=== PATIENT | male | born 1975 | race Caucasian/White ===

== ENCOUNTER 2019-11-30 09:32 | Outpatient (CLI) | payer OTHER ==
--- NOTE | 2019-11-30 15:59 | CT ---
CT OF ABDOMEN: Date: 11-30-2019 Comparison: None History: Epigastric pain and chest pain for months. Technique: Axial CT imaging at 5 mm intervals from lung bases through mid sacrum with IV and oral con trast. Coronal and sagittal reformatted imaging obtained. FINDINGS: The pelvis was not imaged on this exam. Imaged lung bases are unremarkable. A small fat containing umbilical hernia is noted measuring approximately 2.5 x 1.7 cm. The liver, gallbladder, spleen, pancreas, adrenal glands, and kidneys demonstrate no acute findings. There is a punctate density in the region of the appendix which may represent a post-operative clip o r a very dense calcification. Imaged bowel demonstrates no acute finding. The vascular structures of the abdomen appear patent. No abdominal lymphadenopathy. No acute osseous abnormality. IMPRESSION: Small fat containing umbilical hernia. No acute findings. POS: JERRI
== END 2019-11-30 09:33 | disposition home or self-care (01) ==
LOC: SCSCT 09:32
PROVIDERS: ATTEND Family Medicine
DX: K42.9 Umbilical hernia without obstruction or gangrene (principal); R10.13 Epigastric pain
CPT/HCPCS: 74160

== ENCOUNTER 2019-12-15 09:09 | Outpatient (CLI) | payer OTHER ==
--- NOTE | 2019-12-15 09:41 | ULT ---
ULTRASOUND ABDOMEN LIMITED: (RIGHT UPPER QUADRANT) DATE: 12/15/2019 HISTORY: 44-year-old male with epigastric pain FINDINGS: Gallbladder: Normal wall thickness. No gallstones or sludge identified. No pericholecystic fluid. Liver: Normal parenchymal echogenicity. Right kidney: No hydronephrosis. Pancreas: Only partially visualized, with no gross sonographic abnormality identified (although ultra sound is relatively insensitive for the detection of pancreatic pathology compared to CT and MRI.). Common duct caliber: 5 mm. IMPRESSION: No pathology identified.
== END 2019-12-15 09:10 | disposition home or self-care (01) ==
LOC: SCSULT 09:09
PROVIDERS: ATTEND Specialist
DX: R10.13 Epigastric pain (principal)
CPT/HCPCS: 76705